=== PATIENT | male | born 2000 | race African-American/Black ===

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

== ENCOUNTER 2018-05-26 18:11 | Emergency (ER) | payer MEDICAID, OTHER ==
[2018-05-26 18:24] VITALS: BP 149/77
[2018-05-26] MEDS ORDERED: LIDOCAINE 5% (700 MG) TRANSDERMAL ADH..PATCH TP ONE (19:19)
[2018-05-26] MEDS ORDERED: IBUPROFEN 800 MG TABLET PO ONE (19:19)
[2018-05-26] MEDS ORDERED: CYCLOBENZAPRINE HCL 10 MG TABLET PO ONE (19:19)
--- NOTE | 2018-05-26 19:22 | ER Document Report ---
ED Neck/Back Problem - General Chief Complaint: Back Pain Stated Complaint: BACK PAIN Time Seen by Provider: 05/26/18 19:08 Mode of Arrival: Ambulatory Information source: Patient Notes: 17-year-old male presented to ED for complaint of left lower back pain with no radiation to legs and no signs or symptoms of cauda equina. He states it is all in the left lower back muscle. He states he was lifting a lot of boxes of rise today at work and strained his back. He states he is done this in the past and was given some anti-inflammatories and muscle relaxers which helped. Patient is alert and oriented respirations regular and unlabored speaking in full sentences walking with a even steady gait. TRAVEL OUTSIDE OF THE [place] IN LAST 30 DAYS: No - HPI Patient complains to provider of: Lower back Onset: This morning Where: Work Onset: Gradual Timing: Still present Quality of pain: Burning, Sharp Severity: Moderate Pain Level: 4 Context: Lifting Recent injury: Possibly Associated symptoms: Lower back pain - Left Exacerbated by: Movement of trunk Relieved by: Nothing Similar symptoms previously: Yes Recently seen / treated by doctor: No - Related Data Allergies/Adverse Reactions: No Known Allergies Allergy (Verified 05/26/18 18:13) Past Medical History - General Information source: Patient - Social History Smoking Status: Current Every Day Smoker Cigarette use (# per day): Yes - Half pack per day Chew tobacco use (# tins/day): No Smoking Education Provided: Yes - 4 minutes Frequency of alcohol use: Rare Drug Abuse: Marijuana Occupation: [employer] with: Family Family History: None Patient has suicidal ideation: No Patient has homicidal ideation: No - Past Medical History Cardiac Medical History: Reports: None Pulmonary Medical History: Reports: Hx Asthma EENT Medical History: Reports: None Neurological Medical History: Reports: None Endocrine Medical History: Reports: None Renal/ Medical History: Reports: None Malignancy Medical History: Reports None GI Medical History: Reports: None Musculoskeletal Medical History: Reports Hx Musculoskeletal Trauma Skin Medical History: Reports None Psychiatric Medical History: Reports: None Traumatic Medical History: Reports: None Infectious Medical History: Reports: None Past Surgical History: Reports: Hx Testicular Surgery - Had an undescended testicle dropped - Immunizations Immunizations up to date: Yes Hx Diphtheria, Pertussis, Tetanus Vaccination: Yes Review of Systems - Review of Systems Constitutional: No symptoms reported EENT: No symptoms reported Cardiovascular: No symptoms reported Respiratory: No symptoms reported Gastrointestinal: No symptoms reported Genitourinary: No symptoms reported Male Genitourinary: No symptoms reported Musculoskeletal: Back pain, Muscle pain, Muscle stiffness Skin: No symptoms reported Hematologic/Lymphatic: No symptoms reported Neurological/Psychological: No symptoms reported -: Yes All other systems reviewed and negative Physical Exam - Vital signs Vitals: Temp Pulse Resp BP Pulse Ox 98.8 F 81 14 149/77 H 100 05/26/18 18:23 05/26/18 18:23 05/26/18 18:23 05/26/18 18:23 05/26/18 18:23 Interpretation: Normal - General General appearance: Appears well, Alert - HEENT Head: Normocephalic, Atraumatic Eyes: Normal Pupils: PERRL - Respiratory Respiratory status: No respiratory distress Chest status: Nontender Breath sounds: Normal Chest palpation: Normal - Cardiovascular Rhythm: Regular Heart sounds: Normal auscultation Murmur: No - Abdominal Inspection: Normal Distension: No distension Bowel sounds: Normal Tenderness: Nontender Organomegaly: No organomegaly - Back Back: Normal, Tender. No: Deformity/step-off - Left lower back, CVA tenderness , Vertebra tenderness, Scars, Scoliosis, Wounds - Extremities General upper extremity: Normal inspection, Nontender, Normal color, Normal ROM , Normal temperature General lower extremity: Normal inspection, Nontender, Normal color, Normal ROM , Normal temperature, Normal weight bearing. No: Andrade's sign - Neurological Neuro grossly intact: Yes Cognition: Normal Orientation: AAOx4 Herbert Coma Scale Eye Opening: Spontaneous Herbert Coma Scale Verbal: Oriented Herbert Coma Scale Motor: Obeys Commands Herbert Coma Scale Total: 15 Speech: Normal Motor strength normal: LUE, RUE, LLE, RLE Sensory: Normal - Psychological Associated symptoms: Normal affect, Normal mood - Skin Skin Temperature: Warm Skin Moisture: Dry Skin Color: Normal Course - Re-evaluation Re-evalutation: 05/26/18 20:26 Patient treated with anti-inflammatories and Flexeril and Lidoderm patch. He states this is what helped him in the past. Patient was discharged home with prescriptions for the inflammatories and Flexeril. Patient was discharged home. Patient was given instructions for ice warm packs back exercises and follow-up with primary doctor and orthopedics. - Vital Signs Vital signs: Temp Pulse Resp BP Pulse Ox 98.8 F 81 14 149/77 H 100 05/26/18 18:23 05/26/18 18:23 05/26/18 18:23 05/26/18 18:23 05/26/18 18:23 Discharge - Discharge Clinical Impression: Left low back pain Qualifiers: Chronicity: acute Sciatica presence: without sciatica Qualified Code(s): M54.5 - Low back pain Condition: Stable Disposition: HOME, SELF-CARE Additional Instructions: LOW BACK PAIN: Three out of every four people will have an episode of disabling back pain during their lifetime. Most commonly the pain is due to straining of the muscles and ligaments in the low back. Usual treatment includes: (1) Rest on a firm surface. Avoid lying on your stomach. (2) Ice pack the painful area. After a few days, gentle heat may be used intermittently to relax the area, or ice packs can be continued. (3) Medication may be needed -- muscle relaxers and antiinflammatory medicines are commonly used. (4) As the back improves, exercises are prescribed to strengthen the back and abdominal muscles. Your doctor will advise you on the proper care for your back at each stage in your recovery. You may be better in a few days -- or healing may take several weeks. If new symptoms of a "herniated disc" (radiation of pain, numbness, or tingling down the back of the leg or weakness in the leg) occur, you should be re-examined. Further testing may be necessary. Ibuprofen Ibuprofen is an excellent, safe drug for pain control. In addition, it has potent antiinflammatory effects which are beneficial, especially in the treatment of injuries, arthritis, or tendonitis. It's best to take ibuprofen with food. Persons with ulcer disease or allergy to aspirin should notify their physician of this before taking ibuprofen. Take the medication exactly as prescribed. Don't take additional doses unless instructed to do so by your doctor. If you develop wheezing, shortness of breath, hives, faintness, stomach pain, vomiting, or dark black stools, return for re-evaluation at once. MUSCLE RELAXERS: Muscle relaxing medications are usually prescribed for acute muscle spasm or injury to the neck and back. They are often combined with antiinflammatory pain medication for increased relief. You may stop the muscle relaxer when the pain and stiffness have improved. Start the medication again if spasms recur. Muscle relaxers may cause drowsiness, especially with the first dose. Do not operate machinery or drive while under the effects of the medication. Most muscle relaxers last up to 24 hours. Do not combine the medication with alcohol. ICE PACKS: Apply ice packs frequently against the painful area. Many different schedules are recommended, such as "20 minutes on, 20 minutes off" or "one hour ice, two hours rest." If you need to work, you may need to go longer between ice treatments. You should plan to have the area ice packed AT LEAST one fourth of the time. The ice should be applied over the wrap, tape, or splint, or over a layer of cloth -- not directly against the skin. Some ice bags have a built-in cloth and can be put directly on the skin. WARM PACKS: After approximately two days, apply gentle heat (such as a heating pad or hot water bottle) for about 20 to 30 minutes about every two hours -- at least four times daily. Warmth and elevation will help you make a more rapid recovery , and will ease the pain considerably. Do not use HOT heat, and never apply heat for longer than 30 minutes. The continuous heat can invisibly damage skin and muscles -- even when no burn is seen on the surface. Damaged muscles can make you MORE sore. Use Aspercreme lidocaine gel to the area for added relief of pain. Stretching Exercises for the Back The physician has recommended that you begin stretching exercises for your back. These are often used even while the back is painful. However, you should notify the physician if the activities seem to increase your pain. PELVIC TILT: Lie flat on your back with knees bent. Tighten your stomach and buttock muscles so it flattens your lower back against the floor. Hold 10 seconds. Repeat 10 times, twice daily. KNEE RAISE: Lying on the back with knees bent, raise one knee to your chest, then the other. Hold both knees against the chest 10 seconds, then lower one knee at a time. Repeat 10 times, twice daily. PARTIAL TRUNK RAISE: Lie face down, arms at your sides. Keeping your waist on the floor, use your arms raise your chest up. Support yourself on your elbows for 30 seconds. Repeat twice daily, increasing the time to two minutes as you recover. FOLLOW-UP CARE: If you have been referred to a physician for follow-up care, call the physician s office for an appointment as you were instructed or within the next two days. If you experience worsening or a significant change in your symptoms, notify the physician immediately or return to the Emergency Department at any time for re-evaluation. Prescriptions: Ibuprofen 800 mg PO Q8HP PRN #14 tablet PRN Reason: Cyclobenzaprine HCl [Flexeril 10 mg Tablet] 10 mg PO TIDP PRN #15 tab PRN Reason: Forms: Elevated Blood Pressure, Smoking Cessation Education, Return to Work Referrals: CIARA JAY MD [Primary Care Provider] - Follow up as needed
== END 2018-05-26 19:32 | disposition home or self-care (01) ==
LOC: ER 18:11
DX: M54.5 Low back pain (principal); F17.210 Nicotine dependence, cigarettes, uncomplicated; X50.0XXA Overexertion from strenuous movement or load, initial encounter; Y99.0 Civilian activity done for income or pay
CPT/HCPCS: 99283

== ENCOUNTER 2019-02-28 17:05 | Emergency (ER) | payer SELFPAY ==
--- NOTE | 2019-02-28 17:22 | ER Document Report ---
ED Medical Screen (RME) - General Chief Complaint: Testicular Pain Stated Complaint: TESTICLE PAIN Time Seen by Provider: 02/28/19 17:21 Primary Care Provider: CIARA JAY MD [Primary Care Provider] - Follow up as needed Mode of Arrival: Ambulatory Information source: Patient Notes: Patient presents complaining of bilateral testicular tenderness for the past 3 days. Patient denies any injury or fever. Patient denies any urinary symptoms. Patient does have a history of previous testicular surgery 4 years ago I have greeted and performed a rapid initial assessment of this patient. A comprehensive ED assessment and evaluation of the patient, analysis of test results and completion of the medical decision making process will be conducted by additional ED providers. TRAVEL OUTSIDE OF THE [place] IN LAST 30 DAYS: No - Related Data Allergies/Adverse Reactions: No Known Allergies Allergy (Verified 02/28/19 17:10) Past Medical History Pulmonary Medical History: Reports: Hx Asthma Renal/ Medical History: Denies: Hx Peritoneal Dialysis Musculoskeltal Medical History: Reports Hx Musculoskeletal Trauma Past Surgical History: Reports: Hx Testicular Surgery - Had an undescended testicle dropped, Hx Urinary Tract Surgery - left testicle - Immunizations Immunizations up to date: Yes Hx Diphtheria, Pertussis, Tetanus Vaccination: Yes Physical Exam - Vital signs Vitals: Temp Pulse Resp BP Pulse Ox 98.1 F 63 16 143/78 H 98 02/28/19 17:14 02/28/19 17:14 02/28/19 17:14 02/28/19 17:14 02/28/19 17:14 - General General appearance: Appears well, Alert In distress: None Course - Vital Signs Vital signs: Temp Pulse Resp BP Pulse Ox 98.1 F 63 16 143/78 H 98 02/28/19 17:14 02/28/19 17:14 02/28/19 17:14 02/28/19 17:14 02/28/19 17:14 Doctor's Discharge - Discharge Referrals: CIARA JAY MD [Primary Care Provider] - Follow up as needed
[2019-02-28 17:48] LABS: APPEARANCE,URINE CLEAR; BILIRUBIN,URINE NEGATIVE (NEGATIVE); COLOR,URINE YELLOW; GLUCOSE, URINE NEGATIVE (NEGATIVE); KETONES,URINE NEGATIVE (NEGATIVE); LEUKOCYTE ESTERASE,URINE NEGATIVE (NEGATIVE); NITRITE,URINE NEGATIVE (NEGATIVE); PROTEIN,URINE NEGATIVE (NEGATIVE); URINE SPECIFIC GRAVITY 1.019; UROBILINOGEN,URINE NEGATIVE mg/dL (<2.0)
--- NOTE | 2019-02-28 18:23 | RADIOLOGY REPORT (SQ) ---
EXAM DESCRIPTION: U/S SCROTUM W/DOPPLER COMPLETED DATE/TIME: 02/28/2019 5:58 pm REASON FOR STUDY: testicular pain COMPARISON: None. TECHNIQUE: Static and realtime lagos scale imaging of the scrotum and testes. Selected color Doppler and spectral images recorded to document blood flow. LIMITATIONS: None. FINDINGS: RIGHT: TESTICLE: Normal size. Normal echotexture. Normal blood flow. No mass. EPIDIDYMIS: Normal. HYDROCELE OR VARICOCELE: No. HERNIA OR EXTRA-TESTICULAR MASS: No. OTHER: No other significant finding. LEFT: TESTICLE: Normal size. Normal echotexture. Normal blood flow. No mass. EPIDIDYMIS: Normal. HYDROCELE OR VARICOCELE: Small left hydrocele. No varicocele. HERNIA OR EXTRA-TESTICULAR MASS: No. OTHER: No other significant finding. IMPRESSION: NO EVIDENCE OF TESTICULAR MASS OR TORSION. TECHNICAL DOCUMENTATION: JOB ID: [id number] [place]-72 2010 [employer]- All Rights Reserved Reading location - IP/workstation name: [employer]
[2019-02-28] MEDS ORDERED: LIDOCAINE 1% INJ-PF (10 MG/ML) 30 ML SDV NEB ONE (19:03)
[2019-02-28] MEDS ORDERED: CEFTRIAXONE INJ 250 MG VIAL IM ONE (19:03)
--- NOTE | 2019-02-28 19:03 | ER Document Report ---
ED General - General Chief Complaint: Testicular Pain Stated Complaint: TESTICLE PAIN Time Seen by Provider: 02/28/19 17:21 Primary Care Provider: CIARA JAY MD [COMMUNITY BASED STAFF] - Follow up as needed Mode of Arrival: Ambulatory TRAVEL OUTSIDE OF THE [place] IN LAST 30 DAYS: No - HPI Notes: 18-year-old male to the emergency department with complaints of bilateral testicular pain for the past 3 days. He states that it hurts constantly even more so with movement. He denies any penile discharge, dysuria, urinary frequency, genital lesions, redness, swelling of the testicles. Several years ago he had surgery on both of his testicles because his testicles were not completely distended. He denies any bulging. He denies any fevers, chills, ab dominal pain, rectal pain. He is sexually active and does not use protection. He has never had an STD before. - Related Data Allergies/Adverse Reactions: No Known Allergies Allergy (Verified 02/28/19 17:10) Past Medical History - General Information source: Patient - Social History Smoking Status: Current Every Day Smoker Frequency of alcohol use: None Drug Abuse: Marijuana Family History: None, Reviewed & Not Pertinent Patient has suicidal ideation: No Patient has homicidal ideation: No Pulmonary Medical History: Reports: Hx Asthma Renal/ Medical History: Denies: Hx Peritoneal Dialysis Musculoskeletal Medical History: Reports Hx Musculoskeletal Trauma Past Surgical History: Reports: Hx Testicular Surgery - Had an undescended testicle dropped, Hx Urinary Tract Surgery - left testicle - Immunizations Immunizations up to date: Yes Hx Diphtheria, Pertussis, Tetanus Vaccination: Yes Review of Systems - Review of Systems Constitutional: denies: Chills, Fever EENT: No symptoms reported Cardiovascular: denies: Chest pain, Palpitations, Dyspnea, Syncope Respiratory: denies: Cough, Short of breath Gastrointestinal: Abdomen distended. denies: Abdominal pain, Diarrhea, Nausea, Vomiting Genitourinary: denies: Burning, Dysuria, Discharge, Frequency, Retention Male Genitourinary: Testicular pain. denies: Penile discharge Skin: No symptoms reported -: Yes All other systems reviewed and negative Physical Exam - Vital signs Vitals: Temp Pulse Resp BP Pulse Ox 98.1 F 63 16 143/78 H 98 02/28/19 17:14 02/28/19 17:14 02/28/19 17:14 02/28/19 17:14 02/28/19 17:14 Interpretation: Hypertensive - General General appearance: Appears well, Alert - HEENT Head: Normocephalic, Atraumatic Eyes: Normal Pupils: PERRL - Respiratory Respiratory status: No respiratory distress Chest status: Nontender Breath sounds: Normal Chest palpation: Normal - Cardiovascular Rhythm: Regular Heart sounds: Normal auscultation Murmur: No - Abdominal Inspection: Normal, Obese Distension: No distension Bowel sounds: Normal Tenderness: Nontender. No: McBurney's point, Barbosa's sign, Guarding, Rebound Organomegaly: No organomegaly - Genitourinary Inspection: Normal. No: Blood at meatus, Penile discharge Tenderness: Testicle tender - Mild tenderness to palpation over bilateral posterior testicles. No edema, erythema, skin changes, genital lesions Cremasteric reflex: Normal Scrotum: No: Swelling, Redness, Hot to touch Notes: Chaperoned with RN. No evidence of inguinal hernia. - Back Back: No: CVA tenderness - Extremities General lower extremity: Andrade's sign - Neurological Neuro grossly intact: Yes Cognition: Normal Orientation: AAOx4 [place] Coma Scale Eye Opening: Spontaneous Herbert Coma Scale Verbal: Oriented [place] Coma Scale Motor: Obeys Commands Herbert Coma Scale Total: 15 Speech: Normal Motor strength normal: LUE, RUE, LLE, RLE Sensory: Normal - Psychological Associated symptoms: Normal affect, Normal mood - Skin Skin Temperature: Warm Skin Moisture: Dry Skin Color: Normal Course - Vital Signs Vital signs: Temp Pulse Resp BP Pulse Ox 98.1 F 63 16 143/78 H 98 02/28/19 17:14 02/28/19 17:14 02/28/19 17:14 02/28/19 17:14 02/28/19 17:14 - Laboratory Laboratory results interpreted by me: 02/28/19 17:22 Urine Ascorbic Acid 20 H - Diagnostic Test Radiology reviewed: Image reviewed, Reports reviewed - Transfer of Care Notes: 02/28/19 Impression: bilateral testicle pain. Scrotal ultrasound is negative for torsion or any other acute abnormality. Noted urinalysis. Still pending gonorrhea and chlamydia. Given his age and being sexually active, we will go ahead and cover for gonorrhea and chlamydia. We will give a shot of Rocephin and sent home with doxycycline. We will have him abstain from sexual intercourse for the next 10 days. We will have him have his partner get tested and send for urology follow- up. Discharge - Discharge Clinical Impression: Testicular pain, left, Testicular pain, right Condition: Stable Disposition: HOME, SELF-CARE Instructions: Testicular Pain ([facility]) Additional Instructions: COMPLETE ALL MEDICINES PRESCRIBED. NO SEX UNTIL COMPLETING ANTIBIOTICS. FOLLOW UP WITH UROLOGIST. RETURN IF WORSENING FEVERS, PAIN, TESTICULAR SWELLING, REDNESS. Prescriptions: Doxycycline Hyclate 100 mg PO BID #20 capsule Naproxen [Naprosyn] 500 mg PO BID #20 tablet Referrals: ANDREW QUINONEZ MD [[facility]] - Follow up in 1 week (for Urology follow up) CIARA JAY MD [COMMUNITY BASED STAFF] - Follow up in 1 week
[2019-02-28 19:23] LABS: CHLAM PCR NOT DETECTED (NOT DETECT)
[2019-02-28 19:52] VITALS: BP 144/83
== END 2019-02-28 19:52 | disposition home or self-care (01) ==
LOC: ER 17:05
DX: N50.811 Right testicular pain (principal); N50.812 Left testicular pain; R14.0 Abdominal distension (gaseous); F17.200 Nicotine dependence, unspecified, uncomplicated; J45.909 Unspecified asthma, uncomplicated
CPT/HCPCS: 94640; 99284; 96372; 81001; 87491; 87591; 76870; 93976; J3490; J0696